=== PATIENT | male | born 1945 | race Caucasian/White ===

== ENCOUNTER 2017-06-28 10:09 | Outpatient (CLI) | payer MEDICARE ==
[2017-06-28 11:27] LABS: Hemoglobin 14.7 g/dL (14.0-18.0); Mean Corpuscular HGB CONC 32.9 g/dL (32.0-36.0); Mean Corpuscular Hemoglobin 31.2 pg (27.0-31.0); Mean Corpuscular Volume 94.6 fl (80.0-94.0); Mean Platelet Volume 6.6 fL (7.4-10.4); Platelet Count 350 thou/uL (130-400); RBC Distribution Width 13.1 % (11.5-14.5)
== END 2017-06-28 10:10 | disposition home or self-care (01) ==
LOC: LABBT 10:09
PROVIDERS: ATTEND Orthopaedic Surgery
DX: Z01.818 Encounter for other preprocedural examination (principal); M65.88 Other synovitis and tenosynovitis, other site
CPT/HCPCS: 85027; 85652; 86141; 93005; 93010

== ENCOUNTER 2017-07-02 10:05 | Day surgery (SDC) | payer MEDICARE ==
[2017-06-28 10:34] VITALS: BMI 22.8
[2017-07-02] MEDS ORDERED: Neomycin-Polymyxin 1 ML AMP ONE (11:52)
[2017-07-02] MEDS ORDERED: HYDROmorphone 0.5 MG/0.5 ML SYRINGE ONE ×2 (12:58→13:10)
[2017-07-02] MEDS ORDERED: Bupivacaine HCl 0.5%/Epinephrine 1:200,000/PF 30 ml Vial ONE (13:24)
[2017-07-02] MEDS ORDERED: Fentanyl 250 MCG/5 ML VIAL ONE (13:50)
--- NOTE | 2017-07-02 14:26 | OP ---
DATE OF PROCEDURE: 07/02/2017 PREOPERATIVE DIAGNOSIS: Synovitis of the right wrist. POSTOPERATIVE DIAGNOSIS: Synovitis of the right wrist. PROCEDURE PERFORMED: Exploration of right wrist with debridement and removal of specimens for cultdc es SURGEON: Mayito Novak M.D. PROCEDURE IN DETAIL: The patient was brought to the operating room and after administration of gener al anesthetic intubation, the right upper extremity was prepped and draped in the usual fashion and t he tourniquet was inflated. A straight longitudinal incision was made dorsally through a previous scar centered over the wrist. There was noted to be synovial infiltration around the retinacular repair that have been done previou sly as well as the extensors tendons themselves and this was debrided out and specimens were sent for the following: Routine pathology, AFB stain, fungal stain, Gram stain, aerobic and anaerobic cultur e, mycobacterial culture, fungal culture. The wound was copiously irrigated and the wrist joint was opened and a separate culture was taken from the wrist joint. There did not appear to be significant fluid within the wrist. Next, the extensor carpi ulnaris was mobilized and found to have very littl e synovitis associated with it and it was stable and contained within the sheath that have been recon structed for previously. The tourniquet was released. Bleeders were cauterized and the skin was garland sed with nylon. A well-padded bulky dressing with a volar splint was applied and the patient was sofia en to recovery room in satisfactory condition. Estimated blood loss 15 mL. The patient was monitored. When he was awake and stable, he was discharged home. He was given a pre scription for pain medication, wound care instructions, and a followup appointment.
[2017-07-02] MEDS ORDERED: PROPOFOL 200 MG/20 ML VIAL ONE (17:18)
[2017-07-02] MEDS ORDERED: Lidocaine 1% PF 5 ML VIAL ONE (17:18)
[2017-07-02] MEDS ORDERED: Ondansetron HCl/PF 4 MG/2 ML Vial ONE (17:18)
[2017-07-02] MEDS ORDERED: Esmolol 100 MG/10 ML VIAL ONE (17:18)
[2017-07-05 10:21] LABS: Fungus Stain Final report (.)
[2017-07-06 17:10] LABS: Fungus Stain Final report (.)
[2017-07-06 17:10] LABS: Fungus Stain Final report (.)
[2017-07-06 17:10] LABS: Fungus Stain Final report (.)
[2017-07-26 16:14] LABS: Fungus Culture Final report (.)
[2017-07-26 16:14] LABS: Fungus Culture Final report (.)
[2017-08-01 07:52] LABS: Fungus Culture Final report (.)
[2017-08-01 12:17] LABS: Fungus Culture Final report (.)
== END 2017-07-02 15:35 | disposition home or self-care (01) ==
LOC: SDC 10:05
PROVIDERS: ATTEND Orthopaedic Surgery
PROC: 0LB70ZZ Excision of Right Hand Tendon, Open Approach (ICD-10-PCS; principal; 2017-07-02)
PROC: 0JBJ0ZX Excision of Right Hand Subcutaneous Tissue and Fascia, Open Approach, Diagnostic (ICD-10-PCS; 2017-07-02)
DX: M65.841 Other synovitis and tenosynovitis, right hand (principal); M79.89 Other specified soft tissue disorders; I25.10 Atherosclerotic heart disease of native coronary artery without angina pectoris; M19.90 Unspecified osteoarthritis, unspecified site; Z91.018 Allergy to other foods; Z88.8 Allergy status to other drugs, medicaments and biological substances; Z95.5 Presence of coronary angioplasty implant and graft; Z98.890 Other specified postprocedural states
CPT/HCPCS: 87070; 87102; 87116; 87205; 87206; 88305; 96374; J0670; J1170; J2001; J2405; J2704; J3010